=== PATIENT | female | born 1960 | race Caucasian/White ===

== ENCOUNTER 2016-03-16 06:02 | Day surgery (SDC) | payer OTHER ==
[~2016-03-16] VITALS: Ht 157.5 cm; Wt 79.5 kg
[2016-03-16 06:37] LABS: HEMATOCRIT 46.6 % (36.0-48.0); HEMOGLOBIN 15.3 g/dL (12-16); MCH 31.2 pg (26.0-34.0); MCHC 32.8 g/dL (31.0-37.0); MCV 95.1 fL (80.0-100.0); MEAN PLATELET VOLUME 9.9 fL (7.4-10.4); RBC 4.9 10x6/uL (4.00-5.40); RDW 14.5 % (11.5-14.5); WBC 10.4 10x3/uL (4.8-10.8)
[2016-03-16] MEDS ORDERED: LOVASTATIN10 MG PO ×2 (06:42)
[2016-03-16] MEDS ORDERED: CELEXA10 MG (06:43)
[2016-03-16] MEDS ORDERED: MULTIPLE VITAMI1 TA1 PO (06:43)
[2016-03-16 06:48] VITALS: BP 124/77; Ht 157.5 cm; Wt 79.5 kg
--- NOTE | 2016-03-16 11:12 | NUR ---
1055--PT VOIDS WITHOUT DIFFICULTY, IV ANITA'Ab DAO RN
--- NOTE | 2016-03-16 11:27 | NUR ---
1110--DISCHARGE INSTRUCTIONS GIVEN, PT VERBALIZES UNDERSTANDING. PT OFF UNIT VIA AIME. SYLWIA OMALLEY
--- NOTE | 2016-03-18 11:30 | OP ---
PATIENT NAME: NATALIO OBREGON MEDICAL RECORD: [id number] :60 LOCATION:[facility] ADMISSION DATE: SURGEON: KRISTOPHER MANZO MD DATE OF OPERATION: 03/16/2016 PREOPERATIVE DIAGNOSIS: The patient referred for screening colonoscopy. POSTOPERATIVE DIAGNOSIS: Single, benign-appearing sessile polyp in the rectum at 15 cm; otherwise, normal colonoscopy. OPERATION PERFORMED: Colonoscopy to cecum and single hot biopsy forceps polypectomy at 15 cm. SURGEON: Kristopher Manzo MD ANESTHESIA: TIVA per [employer] [place] [employer]. REFERRING PHYSICIAN: Dr. Huang, [place]. PREOPERATIVE NOTE: Ms. Obregon is a 56-year-old white female from [place] who has not had prior colonoscopy and had requested referral for screening colonoscopy from Dr. Huang. Her past history is negative for any intestinal problems or complaints. Her family history is negative for colorectal cancer or polyps, so far as she knows. Her primary health problem in tobacco addiction. She continues to smoke about half a pack of cigarettes daily. She has a history of hypercholesterolemia and has been on lovastatin and she takes Celexa for depression and anxiety. She just recently moved to [place] from [place] after a short residence there and prior to that had moved for some time in [place]. She is originally from [place]. Prior surgery includes an appendectomy and tonsillectomy. DESCRIPTION OF PROCEDURE: The patient has had completed the standard MiraLax prep and was brought to the GI lab. TIVA was administered by [employer] [place] [employer]. The patient was turned in the lateral decubitus position and a digital rectal exam was performed which was normal. The Olympus colonoscope was introduced and advanced into the rectum where at about 12-15 cm, there was a small polyp about half a centimeter diameter sessile benign-appearing polyp, which was biopsied and removed with hot biopsy forceps technique. The scope was then advanced on to the cecum with modest difficulty due to patient pushing. She was given glucagon 1 mg during the procedure in addition to deepening the level of anesthesia with TIVA. The cecum was normal. I did not intubate the ileocecal valve to examine the terminal ileum. The scope was slowly withdrawn. The withdrawal time was approximately 10 minutes and there were no other lesions or abnormalities identified. The patient was subsequently awakened and after a brief period of recovery in the GI laboratory, was returned to her room in the outpatient department. I will ask Ms. Obregon to resume her diet today as tolerated, though initially at least cautiously. She is not to drive prior to tomorrow and she is well aware of that. She will continue her home medications. She will not need to return to see me in the office, but is instructed to call me on Saturday of next week at which time I expect to have the path report and can discuss the findings with her. At this time, I anticipate my recommendation will be that she simply have a repeat colonoscopy in 5 years. OPERATIVE REPORT [id number] NATALIO OBREGON TRANSINT:[id number] Voice Confirmation ID: [id number] DOCUMENT ID: [id number] KRISTOPHER MANZO MD at 1130 CC: CYNTHIA HUANG DO [id number] DICTATION DATE: 03/16/16 1040 BACK SEWER: 03/16/16 1234 [facility] 03/16/16 [id number] [place] [address]
== END 2016-03-16 11:10 | disposition home or self-care (01) ==
LOC: D.OPS 06:02
PROVIDERS: Surgery
DX: Z12.11 Encounter for screening for malignant neoplasm of colon (principal); K62.1 Rectal polyp; F17.210 Nicotine dependence, cigarettes, uncomplicated; E78.00 Pure hypercholesterolemia, unspecified; F32.9 Major depressive disorder, single episode, unspecified; F41.9 Anxiety disorder, unspecified; Z79.899 Other long term (current) drug therapy

== ENCOUNTER 2016-08-16 19:33 | Emergency (ER) | payer OTHER ==
[2016-03-16 06:48] VITALS: BMI 32.1
[~2016-08-16 19:33] MED LIST: CELEXA10 MG; LOVASTATIN10 MG PO; MULTIPLE VITAMI1 TA1 PO
[2016-08-16 20:07] LABS: BASOPHILS 0.4 % (0-2); EOSINOPHILS 1.6 % (0-7); HEMATOCRIT 41.1 % (36.0-48.0); HEMOGLOBIN 13.3 g/dL (12-16); IMMATURE GRANULOCYTES 0.2 % (0-5); LYMPHOCYTES 27.8 % (15-50); MCH 31.3 pg (26.0-34.0); MCHC 32.4 g/dL (31.0-37.0); MCV 96.7 fL (80.0-100.0); MONOCYTES 4.8 % (2-11); NEUTROPHILS 65.2 % (40-80); PLATELET COUNT 265 10x3/uL (130-400); RBC 4.25 10x6/uL (4.00-5.40); RDW 14.1 % (11.5-14.5); WBC 13.8 10x3/uL (4.8-10.8)
[2016-08-16 20:20] LABS: ALBUMIN 3.7 g/dL (3.4-5.0); ANION GAP 15.1 mmol/L (8-16); BILIRUBIN - TOTAL 0.32 mg/dL (0.2-1.3); CALCIUM 8.7 mg/dL (8.5-10.1); CARBON DIOXIDE 26.7 mmol/L (21.0-32.0); CREATININE - SERUM 0.9 mg/dL (0.6-1.3); POTASSIUM - SERUM 3.8 mmol/L (3.5-5.1); PROTEIN - SERUM 7.2 g/dL (6.4-8.2)
== END 2016-08-16 21:35 | disposition home or self-care (01) ==
LOC: D.ER 19:33
PROVIDERS: Emergency Medicine
DX: R55 Syncope and collapse (principal); E78.5 Hyperlipidemia, unspecified; E32.9 Disease of thymus, unspecified

== ENCOUNTER 2017-04-11 15:30 | Outpatient (CLI) | payer OTHER ==
[2016-03-16 06:48] VITALS: BMI 32.1
== END 2017-04-11 16:00 ==
LOC: D.MAMMO 15:30
DX: Z12.31 Encounter for screening mammogram for malignant neoplasm of breast (principal)

== ENCOUNTER 2018-09-22 11:21 | Emergency (ER) | payer BC ==
[~2018-09-22] VITALS: Ht 167.6 cm; Wt 79.5 kg
[2018-09-22 11:26] VITALS: Ht 167.6 cm; Wt 79.5 kg
[2018-09-22] MEDS ORDERED: MUPIROCIN22 GM TOPICAL (13:07)
[2018-09-22] MEDS ORDERED: VOLTAREN75 MG PO (13:07)
[2018-09-22 13:25] VITALS: BP 134/76
== END 2018-09-22 13:25 | disposition home or self-care (01) ==
LOC: D.ER 11:21
DX: S01.81XA Laceration without foreign body of other part of head, initial encounter (principal); W18.30XA Fall on same level, unspecified, initial encounter; Y93.89 Activity, other specified; Y92.89 Other specified places as the place of occurrence of the external cause

== ENCOUNTER → 2019-07-20 22:07 | Outpatient (CLI) | payer BC ==
[2018-09-22 11:26] VITALS: BMI 28.3
[~2019-07-20 22:07] MED LIST changes: +MUPIROCIN22 GM TOPICAL; +VOLTAREN75 MG PO
== END | disposition home or self-care (01) ==
LOC: D.MAMMO 16:15
PROVIDERS: ATTEND Family Medicine
DX: Z12.31 Encounter for screening mammogram for malignant neoplasm of breast (principal)